=== PATIENT | male | born 1990 | race Caucasian/White ===

== ENCOUNTER 2018-11-08 16:40 | Emergency (ER) | payer OTHER ==
[~2018-11-08] VITALS: Ht 172.7 cm; Wt 68.0 kg
--- NOTE | 2018-11-08 17:00 | NUR ---
URINE SPECIMEN COLLECTED VIA STRAIGTH CATH AND SENT TO LAB.
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
--- NOTE | 2018-11-08 17:10 | NUR ---
PT SEEN AND EXAMINED BY DR. BENAVIDES
[2018-11-08] MEDS ORDERED: LORAZEPAM INJ 2 MG/ML VIAL ONE (17:32)
[2018-11-08] MEDS ORDERED: HALOPERIDOL LACTATE INJ 5 MG/ML VIAL ONE (17:32)
[2018-11-08] MEDS ORDERED: diphenhydrAMINE HCL 50 MG/ML VIAL ONE (17:32)
[2018-11-08 17:35] LABS: APPEARANCE,URINE Clear (CLEAR); BILIRUBIN,URINE SMALL (NEGATIVE); BLOOD, URINE Negative Ery/uL (NEGATIVE); COLOR,URINE Yellow (YELLOW); KETONES,URINE Negative (NEGATIVE); LEUKOCYTE ESTERASE ,URINE Negative (NEGATIVE); NITRITE, URINE Negative (NEGATIVE); PH,URINE 5.5 (5.0-8.0); PROTEIN,URINE Negative (NEGATIVE); UGLUCOSE Negative (NEGATIVE); UROBILINOGEN,URINE 0.2 EU/dL (0.2)
[2018-11-08] MEDS: LORAZEPAM INJ 2 MG/ML VIAL IM/IV ONE (17:50)
[2018-11-08] MEDS: HALOPERIDOL LACTATE INJ 5 MG/ML VIAL IM ONE (17:50)
[2018-11-08] MEDS: diphenhydrAMINE HCL 50 MG/ML VIAL IM ONE (17:50)
[2018-11-08] MEDS: IV NS 0.9% 1,000 ML BAG IV ONE (18:30)
[2018-11-08 18:47] LABS: BASOPHILS % (AUTO) 0.4 % (0.0-2.0); EOSINOPHILS % (AUTO) 1.2 % (0.0-6.0); HEMATOCRIT 33 % (39-51); HEMOGLOBIN 11.1 g/dL (13.5-17.5); LYMPHOCYTES # (AUTO) 2.4 /CMM (0.8-4.8); LYMPHOCYTES % (AUTO) 26.6 % (20.0-44.0); MEAN CORPUSCULAR HGB CONC 34 g/dl (31.0-36.0); MEAN CORPUSCULAR VOLUME 84 fL (80-96); MONOCYTES # (AUTO) 0.5 /CMM (0.1-1.30); MONOCYTES % (AUTO) 5.7 % (2.0-12.0); NEUTROPHILS % (AUTO) 66.1 % (43.0-81.0); PLATELET COUNT (AUTO) 348 /CMM (150-450); RED BLOOD CELL COUNT(AUTO) 3.94 MIL/uL (4.5-6.0)
[2018-11-08 18:57] LABS: CARBON DIOXIDE 27 mmol/L (21-32); CHLORIDE 104 mmol/L (98-107); CREATININE 0.7 mg/dL (0.6-1.3); GLUCOSE 87 mg/dL (74-106); POTASSIUM 3.6 mmol/L (3.5-5.1); SODIUM SERUM 139 mmol/L (136-145); UREA NITROGEN, BLOOD 19 mg/dL (7-18)
[2018-11-08 19:13] LABS: ALANINE AMINOTRANSFERASE 49 U/L (12-78); ALBUMIN 3.3 g/dL (3.4-5.0); ALKALINE PHOSPHATASE 73 U/L (46-116); ASPARTATE AMINOTRANSFERASE 40 U/L (15-37); BILIRUBIN,DIRECT 0.1 mg/dL (0.0-0.2); BILIRUBIN,TOTAL 0.4 mg/dL (0.2-1.0); TOTAL PROTEIN, SERUM 6.9 g/dL (6.4-8.2)
[2018-11-08 19:14] LABS: ACETAMINOPHEN < 2 ug/ml (10-30); ALCOHOL, BLOOD < 3 mg/dL (0-0); SALICYLATE 1.7 mg/dL (2.8-20.0)
--- NOTE | 2018-11-08 19:28 | NUR ---
REPORT GIVEN TO JOVANI PRICE FOR JUAN.
--- NOTE | 2018-11-08 21:57 | NUR ---
Patient is resting comfortably in bed with eyes closed. Easily aroused. VSS.
--- NOTE | 2018-11-09 00:42 | NUR ---
Patient is resting comfortably in bed with eyes closed. Easily aroused. VSS
--- NOTE | 2018-11-09 07:30 | NUR ---
PT ASLEEP ON BED, DIFFICULT TO AROUSE RESPONDS TO PHYSICAL TOUCH, KEPT RESTED AND COMFORTABLE, WILL CONTINUE TO MONITOR.
--- NOTE | 2018-11-09 07:30 | NUR ---
REPORT GIVEN TO SHORTY MEDINA RN FOR JUAN
--- NOTE | 2018-11-09 14:01 | NUR ---
AJ LUNSFORD CALLED FOR HOMELESS DC/RESOURCES
--- NOTE | 2018-11-09 14:23 | NUR ---
Social service consult requested by ED [facility] [place] for homelessness. Pt. is a 28 year old male who was brought to [facility] ED yesterday due to methamphetamine use. Pt. has been cleared for discharge as of this morning, however has been asleep for over 15 hours in the ED. PATRICA and pt's RN Satnam met with pt. bedside. Pt. is alert and oriented x 3. Per RN Satnam is ambulatory. Initially pt. was cooperative with SW when asked his and how long he has been homeless. Pt. stated he has been homeless for the past 11 years. SW asked pt if he would like homeless [place] [facility] and resources. Pt. refused to answer anymore questions that were being asked of him and closed his eyes. SW and RN tried to wake pt. up, however pt. pretended to sleep and refused to open his eyes. SW is not able to complete the assessment and offer appropriate resources due to pt. not cooperating with SW at this time. Security was called due to pt. refusing to leave the hospital. [facility] is aware of pt's disposition.
--- NOTE | 2018-11-09 14:35 | NUR ---
Patient given written and verbal discharge instructions. Patient verbalizes understanding of instructions. Patient is ambulatory with steady gait. Refuses offer of long term placement. Patient given list of available shelters in surrounding area.
[2018-11-09 14:36] VITALS: BP 122/71
== END 2018-11-09 14:37 | disposition home or self-care (01) ==
LOC: ER 16:44
DX: R41.82 Altered mental status, unspecified (principal); F19.10 Other psychoactive substance abuse, uncomplicated; R45.1 Restlessness and agitation; F15.10 Other stimulant abuse, uncomplicated; F11.10 Opioid abuse, uncomplicated
CPT/HCPCS: 36415; 80048; 80076; 80305; 80307; 80329; 81001; 85025; 96360; 96372 ×3; 99284; G0480; J1200; J1630; J2060; J7030; 81000-TC